=== PATIENT | female | born 1960 ===

== ENCOUNTER 2021-02-01 13:08 | Inpatient (IN) | payer MEDICAID, SELFPAY ==
[2021-02-01] VITALS (73 sets, daily range): BP systolic 64–112; BP diastolic 43–66; PULSE 109–142; RESP 5–35; TEMP 36.2–39.3; O2SAT 36–96; BMI 57.4
--- NOTE | 2021-02-01 14:23 | PC.NURSE ---
Addendum entered by Dale Kapoor R.N. 02/01/21 15:26: 1458- Notified Dr. Patrick of BG 61. Pt has BG in the 20s during transport here. Orders received for half amp of d50. Addendum entered by Dale Kapoor R.N. 02/01/21 14:42: 1440- Notified Dr. Patrick that pt is in bed, ready to be seen. 1435- Notified Dr. Patrick pt arrive on levophed at 20 mcg/min. Requested order to continue medication here. Dr. Patrick states she would like to see the pt first. requested to notify once pt is transferred from stretcher to bed and she will round. No new orders received. Original Note: Pt arrived to room 231 via stretcher with airlift at 1423.
[2021-02-01] MEDS: MIDAZOLAM 50 MG in DEXTROSE 5% IN WATER 240 ML 14.243 ML IV (14:35)
[2021-02-01] MEDS: fentaNYL 1,000 MCG in DEXTROSE 5% IN WATER 230 ML 24.925 ML IV (14:36)
[2021-02-01] MEDS: DEXTROSE 50 % IN WATER 25 GM/50 ML SYRINGE IV ×3 (15:01→21:08)
--- NOTE | 2021-02-01 15:30 | DI.RAD.S_ITS ---
PROCEDURE: XR CHEST 1V INDICATIONS: acute respiratory failure TECHNIQUE: One view of the chest was acquired. COMPARISON: None. FINDINGS: Surgical changes and devices: ETT tip is approximately 3.4 cm above the cynthia. NG tube tip is seen in the region of mid to distal esophageal lumen, should be advanced by 15 cm.. Lungs and pleura: Hazy airspace opacities are noted in bilateral hilar region suggestive of pulmonary vascular congestion. Ill-defined airspace opacities also seen in bilateral mid to lower lung lux more prominent on the right side. Right greater than left bilateral pleural effusion is also seen. No gross pneumothorax. Mediastinum: Mediastinal contours appear normal. Heart size is enlarged. Bones and chest wall: No suspicious bony lesions. Overlying soft tissues appear unremarkable. IMPRESSION: Tube and line positions as above. NG tube tip is in the region of distal esophageal lumen should be advanced by 15 cm. Persistent pulmonary vascular congestion and right worse than left bilateral pulmonary infiltrates. Right greater than left bilateral pleural effusion. No gross pneumothorax. Dictated by: Sammy Pires M.D. on 02/01/2021 at 16:12 Approved by: Sammy Pires M.D. on 02/01/2021 at 16:13
--- NOTE | 2021-02-01 15:43 | DIET.CONS ---
RD Note: Covid+ patient transferred from [facility] on ventilator. Per nursing pt requiring pressor support. RD to calculate TF needs morning of 02/02 when labs and H&P submitted. Pt c BMI 57.4.
[2021-02-01 15:52] LABS: PO2 ABG 67 mmHg (80-100); pH ABG 7.08 (7.35-7.45)
[2021-02-01 15:53] LABS: Fractionated Inspired Oxygen 100; HCO3 ABG 21 mmol/L (22-26); Oxygen Saturation ABG 83 % (95-100); TCO2 ABG 23 mmol/L (21-31)
--- NOTE | 2021-02-01 15:54 | PM.HP.1 ---
History of Present Illness History of Present Illness Chief complaint: Covid + Narrative: The patient is a 60-year-old female with a history of fibromyalgia, lymphoma, hypothyroidism, hep C, asthma, transferred from for [facility] Emergency Department with acute respiratory failure secondary to COVID pneumonia. The patient apparently was well until 5 days ago. She was COVID positive and began quarantine and. She was feeling sick 2 days ago with fever and chills. She had been short of breath for the past 24 hours. Patient also complained of cough but nonproductive. She has been vaccinated. She has no history of COPD or asthma but was a former smoker. The patient was evaluated at [facility]. She was started on remdesivir and Decadron. She decompensated and was intubated. As there were no ICU beds there or anywhere the patient was transferred to [facility] for definitive treatment. Enter out by airlift the patient was hypoglycemic. She remained hypotensive on Levophed 20 mics. Patient was markedly hypoxic despite intubation with O2 sats of 81 84%. 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 Hepatitis C antibody positive in blood History of lymphoma Hypothyroidism Post hysterectomy menopause Spinal stenosis Family & Social History Social History: household members spouse Prior Living Arrangements House Tobacco & Substance use: No smoking, no drinking alcohol, no recreational drugs Meds Home Medications and Allergies Home Medications Medication Instructions Recorded Confirmed Type furosemide 20 mg tablet 20 mg PO DAILY 02/01/21 02/01/21 History tramadol 50 mg tablet 50 mg PO TID PRN 02/01/21 02/01/21 History Allergies Allergy/AdvReac Type Severity Reaction Status Date / Time acetaminophen [From Tylenol] Allergy Unknown Verified 02/01/21 13:49 celecoxib [From Celebrex] Allergy Unknown Verified 02/01/21 13:49 ibuprofen Allergy Unknown Verified 02/01/21 13:49 Review of Systems Review of Systems Narrative: Unobtainable ENT Comments: , Gastrointestinal Comments: r Endocrine Comments: Hypoglycemic Exam Narrative Exam Narrative: Ill-appearing female intubated and sedated HENAK Other: Normocephalic atraumatic, Resp Other: Decreased breath sounds bilaterally Cardio Other: Cardiac exam: Regular rate rhythm normal S1-S2 GI Other: Abdomen: Soft, no board-like rigidity, no palpable mass Skin Other: No obvious lesion Neuro Other: Patient is sedated unresponsive Extrem Other: No edema Objective Labs Labs: Laboratory Results - last 24 hr 02/01/21 15:22 ABG pH 7.08 L* ABG pCO2 70.0 H* ABG pO2 67 L ABG HCO3 21 L ABG Total CO2 23 ABG O2 Saturation 83 L* ABG Base Excess -9.0 L FiO2 100 Assessment & Plan Assessment & Plan narrative: 60-year-old female admitted to the hospital with acute respiratory failure secondary to COVID pneumonia. -patient presented to the [place] emergency department and quickly deteriorated requiring intubation -multiple attempts to transfer including [facility],, [facility], , [facility], [facility], [facility], none of whom had ICU COVID beds -patient received IV Decadron and remdesivir prior to transfer -currently she remains markedly acidotic, with a respiratory and metabolic acidosis -we are currently attempting low tidal volume ventilation, however the patient is on tidal volume of 440 ml, will decrease, her current respiratory rate is 30, will increase respiratory rate to 32. Patient's plateau pressures are currently 29, very concerning for possible barotrauma, will continue to titrate oxygen with a goal of saturation of 88% or higher -will continue to decrease tidal volume, increase PEEP as pressures will tolerate -continue IV Decadron no further remdesivir -repeat labs, place central line, continue IV hydration for now, -attempted to obtain Tociluzimab, unable to obtain this at this time -patient is thrombocytopenic, will place SCDs and avoid Lovenox at this time, continue to monitor labs daily, and resume once platelets over 50 -repeat chest x-ray, prior chest x-ray revealed patchy bilateral infiltrates 2. Septic shock -will taper Levophed, start Adama-Synephrine given her tachycardia -continue IV hydration -continue Decadron -blood cultures, urine culture, no antibiotics at this time -will obtain inflammatory markers to include CRP, ferritin, LDH, procalcitonin -will continue pressors with a goal of a map of greater than 60 3. Acute renal failure -patient has had no urine output -serum creatinine 2.5, sodium 137, potassium 3.7, initial chloride 97, with a CO2 of 16, BUN 35, creatinine 2.5, total bili 3.9 AST of 84, ALT of 62, alk-phos 61, BNP 3 227, total protein 8.7, protime 14.2 with an INR of 1.4, D-dimer 8.3, markedly elevated, initial white count 3.1, hemoglobin 15.4, hematocrit 46, platelet count 47 4. Hypothyroidism -will hold for now 5. Morbid obesity 1 hour spent with this critically ill patient, by report she is a full code, Patient is critically ill with multiorgan system failure, will continue maximum support will discuss with Time Spent With Patient Critical Care time: I spent a total of [] minutes of critical care time on this patient's care today; this time is exclusive of procedural time.
--- NOTE | 2021-02-01 16:01 | DI.RAD.S_ITS ---
PROCEDURE: XR CHEST FOR PICC 1V INDICATIONS: PICC PLACEMENT COMPARISON: [facility], CR, XR CHEST 1V, 02/01/2021, 15:30. FINDINGS: PICC was placed by the intravenous therapy team from the left side. Fluoroscopic spot film demonstrates the tip of PICC projecting to the area of lower SVC. Widespread areas of dense consolidation are grossly unchanged. Endotracheal tube with the tip projecting approximately 6 cm above the cynthia. Enteric tube is again noted within the distal esophagus, and should be advanced as previously recommended on the comparison study dated earlier same day. IMPRESSION: Enteric tube tip is seen in the region of the distal esophagus and should be advanced as previously recommended. Findings (including all critical results) and recommendations were personally telephoned and discussed with the patient's ICU nurse (Chel) on 02-01-21 16:42 Tip of PICC projects to the area of lower SVC. Dictated by: Dale Walker M.D. on 02/01/2021 at 16:38 Approved by: Dale Walker M.D. on 02/01/2021 at 16:43
[2021-02-01 17:00] LABS: Hematocrit 38.5 % (36-46); Hemoglobin 12.9 g/dL (12.0-16.0); Mean Corpuscular HGB Conc 33.4 % (30-36); Mean Corpuscular Hemoglobin 31.9 PG (26-34); Mean Corpuscular Volume 95.4 fL (80-100); Platelet Count 49 X10^3/uL (150-400); Red Blood Cell Count 4.04 X10^6/uL (4.0-5.2); Red Cell Distribution Width 16.5 % (11.6-14.8); White Blood Cell Count 3.5 X10^3/uL (4.5-11.0)
[2021-02-01] MEDS: PHENYLEPHRINE 20,000 MCG in DEXTROSE 5% IN WATER 250 ML 135 ML IV ×2 (17:00→18:52)
[2021-02-01 17:01] LABS: Add Manual Diff / Slide Review YES
[2021-02-01] MEDS: NOREPINEPHRINE 4 MG in DEXTROSE 5% IN WATER 250 ML 30.48 ML IV (17:06)
[2021-02-01 17:21] LABS: Albumin 2.6 g/dL (3.5-5.0); Albumin Globulin Ratio 0.6 (1.0-2.8); Alkaline Phosphatase 49 U/L (38-126); Aspartate Aminotransferase 86 IU/L (14-36); BUN Creatinine Ratio 12.7 (6-22); Bilirubin Total 3.3 mg/dL (0.2-1.3); Blood Urea Nitrogen 34 mg/dL (7-17); Calcium 8.4 mg/dL (8.4-10.2); Carbon Dioxide 21 mmol/L (22-32); Chloride 101 mmol/L (98-107); Estimated Glomerular Filt Rate 18.1 mL/min (>60); Globulin 4.1 g/dL (1.7-4.1); Glucose 51 mg/dL (80-110); HEMOLYSIS < 15 (0-50); Potassium 3.7 mmol/L (3.4-5.1); Sodium 131 mmol/L (137-145); Total Protein 6.7 g/dL (6.3-8.2)
[2021-02-01 17:23] LABS: Creatine Kinase 186 U/L (30-135); Lactate Dehydrogenase 1027 U/L (313-618)
[2021-02-01 17:27] LABS: Lactate (Lactic Acid) 7.1 mmol/L (0.7-2.1)
[2021-02-01 17:28] LABS: Alanine Aminotransferase 45 IU/L (<35)
[2021-02-01 17:33] LABS: Troponin I 0.028 ng/mL (0.01-0.034)
[2021-02-01 17:35] LABS: C-Reactive Protein Quant 18.4 mg/dL (<1.0)
[2021-02-01 17:37] LABS: Procalcitonin 17.6 ng/mL (<0.5)
[2021-02-01 17:56] LABS: Ferritin 375 ng/mL (11-264)
--- NOTE | 2021-02-01 17:59 | DI.US.S_ITS ---
PROCEDURE: US RENAL COMPLETE INDICATIONS: DECREASED URINE OUTPUT TECHNIQUE: Real-time scanning was performed of the kidneys and bladder, with image documentation. COMPARISON: None. FINDINGS: Kidneys: Kidneys are normal in size. Right kidney measures 10.4 cm long; left kidney measures 10.5 cm long. Right renal cortical thickness is 1.9 cm; left renal cortical thickness is 2.1 cm. Renal cortical echotexture is normal. No hydronephrosis or nephrolithiasis. No suspicious solid mass lesions. Bladder: Bladder is decompressed by a Johnson catheter. Miscellaneous: No free pelvic fluid. IMPRESSION: Normal sized kidneys with no evidence of hydronephrosis. Dictated by: Augustin Mccain M.D. on 02/01/2021 at 20:29 Approved by: Augustin Mccain M.D. on 02/01/2021 at 20:30
[2021-02-01 18:09] LABS: Fractionated Inspired Oxygen 100; HCO3 ABG 21 mmol/L (22-26); Oxygen Saturation ABG 74 % (95-100); PCO2 ABG 70.5 mmHg (35-45); PO2 ABG 55 mmHg (80-100); TCO2 ABG 23 mmol/L (21-31); pH ABG 7.09 (7.35-7.45)
[2021-02-01 18:44] LABS: Reflexed Lactate in 2 Hours Y
[2021-02-01 18:47] LABS: Neutrophils Absolute Manual 630 /uL (3000-5900); Total Cells Counted 100
[2021-02-01 18:48] LABS: Platelet Estimate Decreased on smear; Platelet Morphology Comment NOTE; RBC Morphology Normal Morphology
[2021-02-01 18:51] LABS: Toxic Granulation Present; WBC Morphology Comment 2+ Hypogranular
[2021-02-01] MEDS: VASOPRESSIN 40 UNIT in SODIUM CHLORIDE 0.9% 100 ML IV (18:54)
[2021-02-01 18:56] LABS: Lactate (Lactic Acid) 7.4 mmol/L (0.7-2.1)
[2021-02-01] MEDS: CEFEPIME 2 GM in SODIUM CHLORIDE 0.9% 100 ML 200 ML IV (19:16)
[2021-02-01] MEDS: DEXTROSE 5%-LACTATED RINGERS 1,000 ML 125 ML IV (19:21)
--- NOTE | 2021-02-01 19:34 | PC.NURSE ---
Patient COVID positive and intubated, on max settings PEEP 15, FiO2 100%, TV 400, RR 32. SpO2 remaining in 70's%. Patient side-lying, unable to prone safely with current staffing. HR tachy, 120-130's. BP hypotensive, multiple drips being titrated to maintain BP >65. See MAR. Patient is unresponsive, no reaction to painful nailbed stimulus. Skin intact. Johnson in place, no urine output, placement checked- provider aware. Patient had BG in 20's during transport, during this nurse's shift patient's BG ranged from 50's-80's, D50 25ml given 1x. Now sustaining BG WNL on LRD5 @ 100ml. updated on patient's critical condition.
[2021-02-01] MEDS: NOREPINEPHRINE 4 MG in DEXTROSE 5% IN WATER 250 ML 91.44 ML IV (20:15)
[2021-02-01] MEDS: SODIUM CHLORIDE 0.9% IV ×2 (20:25)
[2021-02-01] MEDS: ROCURONIUM IV ×2 (20:25)
[2021-02-01 20:26] LABS: Reflexed Lactate in 2 Hours Y
[2021-02-01 21:22] LABS: COVID19 -Nasal RAPID POSITIVE (Negative)
--- NOTE | 2021-02-01 22:17 | PM.EICU.INT ---
Teleintensivist Intervention Date/Time Was camera activated?: Yes Date Patient Seen: 02/01/21 Time Patient Seen: 10:18 Issue(s) Addressed Issue(s): Resp. Distress/Ventilator management ([place] ehypoxic/hypercapneic respiratory failure due to COVID-19 pneumonia/anuria/FRANCICSO) and Shock/hypotension Intervention(s) :: Patient also seen earlier this shift during multidisciplinary rounds. Patient on norepinephrine and vasopressin infusions; being sedated with fentanyl and midazolam. Advised bedside staff to initiate neuromuscular blockade and continue efforts at transfer. Other interventions were to increase PEEP, infusion Regeneron antibody if available and repeat ABG after paralytic initiated. Repeat blood gas @21:43 was 6.95/85/38. Spoke to RN who believes that this blood gas was venous. Patient now on phenylephrine with non-invasive SBP in 60s. Epinephrine infusion ordered. Given severity of acidemia, liberalized tidal volume to 450 mL. Patient now accepted @ [facility] helicopter due to arrive in 3 minutes; will give 100 mEq NaHCO3 for transport although this will not definitively improve her acidemia given the hypercapnic respiratory failure. I spent a total of 35 minutes of noncontinuous critical care time on this patient's care; this time excludes all procedural time.
--- NOTE | 2021-02-01 22:20 | P.DS_ITS ---
History of Present Illness History of Present Illness Date Patient Seen: 02/01/21 Time Patient Seen: 22:20 Chief complaint: Shortness of breath Narrative: From H and P by Dr. Mary Patrick: The patient is a 60-year-old female with a history of fibromyalgia, lymphoma, hypothyroidism, hep C, asthma, transferred from [facility] Emergency Department with acute respiratory failure secondary to COVID pneumonia.? The patient apparently was well until 5 days ago.? She was COVID positive and began quarantine and.? She was feeling sick 2 days ago with fever and chills.? She had been short of breath for the past 24 hours.? Patient also complained of cough but nonproductive.? She has been vaccinated.? She has no history of COPD or asthma but was a former smoker.? The patient was evaluated at [facility].? She was started on remdesivir and Decadron.? She decompensated and was intubated.? As there were no ICU beds there or anywhere the patient was transferred to [facility] for definitive treatment.? Enter out by airlift the patient was hypoglycemic.? She remained hypotensive on Levophed 20 mics.? Patient was markedly hypoxic despite intubation with O2 sats of 81 84%. Patient is admitted to the hospital for treatment of COVID pneumonia Discharge Providers Provider Date of admission: 02/01/21 13:08 Discharge Date: 02/01/21 Consults: 02/01/21 15:24 Consult to Dietitian, Adult Routine Comment: Reason For Exam: Patient on Ventilator and NPO 02/01/21 15:57 Consult to Dietitian, Adult Routine Comment: Reason For Exam: Patient on Ventilator and NPO Discharge provider: SARA Bolanos Summary Hospital Course Discharge Diagnosis: COVID pneumonia, acute renal failure, acute hypoxic respiratory failure likely ARDS Hospital Course: Trice Beckett is a 60-year-old female who was seen at the [facility] in [place], [place] this morning with known COVID-19, breakthrough vaccination infection. She was airlifted as a direct transfer to [facility] ICU intubated. Patient was managed in coordination with eICU and efforts to have her oxygenation improved have not been successful. She was determined to require dialysis due to her becoming anuric. She had it ABG pH of 7.09 which is now decreased to 6.9, ABG pCO2 was 75, ABG PO2 was 55, bicarb 21 currently now 16, and ABG O2 saturation is 74% and we have not been successful in getting her much above that. She has a base excess of 9.0. At the direction of eICU, she was trialed on 170 mics of Rocuronium which caused total block which has now been stopped. She is on Adama-Synephrine, vasopressin, epinephrine drip, and norepinephrine. She is on fentanyl and Versed for sedation. Patient has a history of lymphoma many years ago per her as well as alcoholic hepatitis C with chronic thrombocytopenia likely currently and cirrhosis. Patient's D-dimer was elevated however was not able to undergo CT imaging due to her rising creatinine. Resuscitative efforts have been made in the ICU and she will be life flighted to [facility] him Dr. Phillips, wheel mill operator accepting. She is tenuous however we are transporting her in a similar condition that she was transported to hear from her local facility earlier today. Status at Discharge Functional status at discharge: bed bound Exam Vital Signs (past 8 hours): - 02/01/21 14:27 02/01/21 14:29 02/01/21 14:30 Temperature Pulse Rate 142 H 139 H 139 H Respiratory Rate Blood Pressure 112/62 112/58 L Pulse Oximetry 84 L 95 86 L 02/01/21 14:38 02/01/21 14:45 02/01/21 14:51 Temperature Pulse Rate 140 H 138 H 138 H Respiratory Rate 24 24 24 Blood Pressure 106/58 L 108/56 L 108/58 L Pulse Oximetry 84 L 83 L 84 L 02/01/21 15:00 02/01/21 15:06 02/01/21 15:15 Temperature Pulse Rate 138 H 138 H 135 H Respiratory Rate 24 23 24 Blood Pressure 101/58 L 103/58 L Pulse Oximetry 85 L 87 L 86 L 02/01/21 15:30 02/01/21 15:45 02/01/21 16:00 Temperature Pulse Rate 134 H 132 H 129 H Respiratory Rate 30 H 30 H 30 H Blood Pressure 96/51 L 95/53 L 92/55 L Pulse Oximetry 86 L 81 L 80 L 02/01/21 16:15 02/01/21 16:18 02/01/21 16:19 Temperature Pulse Rate 127 H 126 H 126 H Respiratory Rate 30 H 30 H 30 H Blood Pressure 89/46 L 79/44 L 77/44 L Pulse Oximetry 78 L 76 L 74 L 02/01/21 16:21 02/01/21 16:25 02/01/21 16:30 Temperature Pulse Rate 126 H 127 H 127 H Respiratory Rate 30 H 32 H 32 H Blood Pressure 80/50 L 83/50 L 87/52 L Pulse Oximetry 72 L 74 L 78 L 02/01/21 16:37 02/01/21 16:40 02/01/21 16:45 Temperature Pulse Rate 127 H 127 H 127 H Respiratory Rate 32 H 32 H 32 H Blood Pressure 84/48 L 87/50 L 86/47 L Pulse Oximetry 77 L 76 L 74 L 02/01/21 16:50 02/01/21 16:55 02/01/21 17:00 Temperature Pulse Rate 128 H 127 H 125 H Respiratory Rate 32 H 32 H 32 H Blood Pressure 85/48 L 86/48 L Pulse Oximetry 74 L 74 L 78 L 02/01/21 17:01 02/01/21 17:06 02/01/21 17:10 Temperature Pulse Rate 125 H 128 H 129 H Respiratory Rate 33 H 26 H 12 Blood Pressure 103/58 L 103/60 102/56 L Pulse Oximetry 80 L 80 L 78 L 02/01/21 17:15 02/01/21 17:20 02/01/21 17:25 Temperature Pulse Rate 129 H 128 H 128 H Respiratory Rate 24 32 H 32 H Blood Pressure 104/59 L 102/63 106/57 L Pulse Oximetry 81 L 80 L 80 L 02/01/21 17:30 02/01/21 17:35 02/01/21 17:40 Temperature Pulse Rate 128 H 128 H 126 H Respiratory Rate 32 H 32 H 32 H Blood Pressure 105/60 107/66 101/62 Pulse Oximetry 81 L 81 L 81 L 02/01/21 17:46 02/01/21 17:56 02/01/21 17:58 Temperature Pulse Rate 127 H 129 H 129 H Respiratory Rate 30 H 32 H 32 H Blood Pressure 102/59 L 80/50 L 88/49 L Pulse Oximetry 80 L 81 L 96 02/01/21 18:00 02/01/21 18:07 02/01/21 18:10 Temperature Pulse Rate 128 H 126 H 126 H Respiratory Rate 32 H 32 H 32 H Blood Pressure 82/52 L 79/50 L Pulse Oximetry 79 L 77 L 76 L 02/01/21 18:15 02/01/21 18:20 02/01/21 18:26 Temperature Pulse Rate 122 H 124 H 125 H Respiratory Rate 32 H 32 H 32 H Blood Pressure 82/52 L 80/50 L 80/43 L Pulse Oximetry 75 L 74 L 73 L 02/01/21 18:30 02/01/21 18:34 02/01/21 18:35 Temperature Pulse Rate 125 H 124 H 124 H Respiratory Rate 32 H 32 H 32 H Blood Pressure 84/52 L 76/43 L Pulse Oximetry 72 L 73 L 73 L 02/01/21 18:40 02/01/21 18:46 02/01/21 18:50 Temperature Pulse Rate 123 H 123 H 123 H Respiratory Rate 32 H 32 H 32 H Blood Pressure 79/48 L 81/50 L 91/55 L Pulse Oximetry 73 L 74 L 74 L 02/01/21 18:55 02/01/21 19:00 02/01/21 19:05 Temperature Pulse Rate 123 H 123 H 123 H Respiratory Rate 32 H 32 H 32 H Blood Pressure 83/46 L 74/52 L 79/54 L Pulse Oximetry 74 L 75 L 75 L 02/01/21 19:10 02/01/21 19:20 02/01/21 19:30 Temperature Pulse Rate 124 H 123 H 124 H Respiratory Rate 32 H 32 H 29 H Blood Pressure 83/56 L 89/53 L 94/55 L Pulse Oximetry 76 L 75 L 74 L 02/01/21 19:40 02/01/21 19:50 02/01/21 20:00 Temperature Pulse Rate 125 H 124 H 123 H Respiratory Rate 32 H 23 32 H Blood Pressure 86/50 L 81/50 L 82/48 L Pulse Oximetry 72 L 73 L 63 L 02/01/21 20:10 02/01/21 20:20 02/01/21 20:21 Temperature 97.2 F L Pulse Rate 122 H 119 H 123 H Respiratory Rate 29 H 26 H 31 H Blood Pressure 75/44 L 79/46 L 82/48 L Pulse Oximetry 58 L 58 L 63 L 02/01/21 20:30 02/01/21 20:33 02/01/21 21:00 Temperature Pulse Rate 117 H 118 H 121 H Respiratory Rate 28 H 8 L 10 L Blood Pressure 89/53 L Pulse Oximetry 64 L 69 L 36 L 02/01/21 21:30 Temperature Pulse Rate 117 H Respiratory Rate 6 L Blood Pressure Pulse Oximetry 73 L Fraction of Inspired Oxygen 100 Oxygen Delivery Method Mechanical Ventilation Narrative Exam Narrative: Full physical exam could not be performed due to COVID-19 isolation requirements. Attempt was made to examine the patient in person. Gen: Alert, oriented, morbidly obese 60 y.o. female, of tended and ventilated HEENT: normocephalic, atraumatic, conjunctiva clear, sclera non-icteric, oral mucosa pink and moist Neck: supple, full ROM, no JVD Abd: Obese Skin: Mildly jaundice pallor Neuro: obtunded and ventilated Psyche: Unable to assess Objective Labs Result Diagrams: 02/01/21 16:30 02/01/21 16:30 Labs: Laboratory Results - last 24 hr 02/01/21 02/01/21 02/01/21 14:50 15:22 16:30 WBC 3.5 L RBC 4.04 Hgb 12.9 Hct 38.5 MCV 95.4 MCH 31.9 MCHC 33.4 RDW 16.5 H Plt Count 49 L Neut % (Auto) Not Reportable Lymph % (Auto) Not Reportable [place] % (Auto) Not Reportable Eos % (Auto) Not Reportable Baso % (Auto) Not Reportable Neut # (Auto) Lymph # (Auto) Not Reportable [place] # (Auto) Not Reportable Eos # (Auto) Baso # (Auto) Not Reportable Total Counted 100 Seg Neutrophils % 5.0 L Band Neutrophils % 13.0 H Lymphocytes % (Manual) 22.0 L Atypical Lymphs % 1.0 H Monocytes % (Manual) 6.0 Eosinophils % (Manual) 3.0 Metamyelocytes % 10.0 H Myelocytes % 30.0 H Promyelocytes % 6.0 H Blast Cells % 4.0 H Neutrophils # (Manual) 630 L Toxic Granulation Present H WBC Morphology Comment 2+ hypogranular Platelet Estimate Decreased on smear Plt Morphology Comment Note RBC Morphology Normal morphology ABG pH 7.08 L* ABG pCO2 70.0 H* ABG pO2 67 L ABG HCO3 21 L ABG Total CO2 23 ABG O2 Saturation 83 L* ABG Base Excess -9.0 L FiO2 100 Sodium Potassium Chloride Carbon Dioxide BUN Creatinine Estimated GFR BUN/Creatinine Ratio Glucose Lactate Calcium Ferritin Total Bilirubin AST ALT Alkaline Phosphatase Lactate Dehydrogenase Total Creatine Kinase Troponin I C-Reactive Protein Total Protein Albumin Globulin Albumin/Globulin Ratio Procalcitonin Nasal Screen MRSA (PCR) Negative for mrsa SARS-CoV-2 (PCR) 02/01/21 02/01/21 02/01/21 16:30 16:30 16:30 WBC RBC Hgb Hct MCV MCH MCHC RDW Plt Count Neut % (Auto) Lymph % (Auto) [place] % (Auto) Eos % (Auto) Baso % (Auto) Neut # (Auto) Lymph # (Auto) [place] # (Auto) Eos # (Auto) Baso # (Auto) Total Counted Seg Neutrophils % Band Neutrophils % Lymphocytes % (Manual) Atypical Lymphs % Monocytes % (Manual) Eosinophils % (Manual) Metamyelocytes % Myelocytes % Promyelocytes % Blast Cells % Neutrophils # (Manual) Toxic Granulation WBC Morphology Comment Platelet Estimate Plt Morphology Comment RBC Morphology ABG pH ABG pCO2 ABG pO2 ABG HCO3 ABG Total CO2 ABG O2 Saturation ABG Base Excess FiO2 Sodium Cancelled Potassium Cancelled Chloride Cancelled Carbon Dioxide Cancelled BUN Cancelled Creatinine Cancelled Estimated GFR Cancelled BUN/Creatinine Ratio Cancelled Glucose Cancelled Lactate 7.1 H* Calcium Cancelled Ferritin 375 H Total Bilirubin Cancelled AST Cancelled ALT Cancelled Alkaline Phosphatase Cancelled Lactate Dehydrogenase 1027 H Total Creatine Kinase 186 H Troponin I 0.028 C-Reactive Protein 18.4 H Total Protein Cancelled Albumin Cancelled Globulin Cancelled Albumin/Globulin Ratio Cancelled Procalcitonin Nasal Screen MRSA (PCR) SARS-CoV-2 (PCR) 02/01/21 02/01/21 02/01/21 16:30 16:30 16:30 WBC Cancelled RBC Cancelled Hgb Cancelled Hct Cancelled MCV Cancelled MCH Cancelled MCHC Cancelled RDW Cancelled Plt Count Cancelled Neut % (Auto) Cancelled Lymph % (Auto) Cancelled [place] % (Auto) Cancelled Eos % (Auto) Cancelled Baso % (Auto) Cancelled Neut # (Auto) Cancelled Lymph # (Auto) Cancelled [place] # (Auto) Cancelled Eos # (Auto) Cancelled Baso # (Auto) Cancelled Total Counted Seg Neutrophils % Band Neutrophils % Lymphocytes % (Manual) Atypical Lymphs % Monocytes % (Manual) Eosinophils % (Manual) Metamyelocytes % Myelocytes % Promyelocytes % Blast Cells % Neutrophils # (Manual) Toxic Granulation WBC Morphology Comment Platelet Estimate Plt Morphology Comment RBC Morphology ABG pH ABG pCO2 ABG pO2 ABG HCO3 ABG Total CO2 ABG O2 Saturation ABG Base Excess FiO2 Sodium 131 L Potassium 3.7 Chloride 101 Carbon Dioxide 21 L BUN 34 H Creatinine 2.67 H Estimated GFR 18.1 L BUN/Creatinine Ratio 12.7 Glucose 51 L Lactate Calcium 8.4 Ferritin Total Bilirubin 3.3 H AST 86 H ALT 45 H Alkaline Phosphatase 49 Lactate Dehydrogenase Total Creatine Kinase Troponin I C-Reactive Protein Total Protein 6.7 Albumin 2.6 L Globulin 4.1 Albumin/Globulin Ratio 0.6 L Procalcitonin 17.6 H Nasal Screen MRSA (PCR) SARS-CoV-2 (PCR) 02/01/21 02/01/21 02/01/21 17:55 21:07 Unknown WBC RBC Hgb Hct MCV MCH MCHC RDW Plt Count Neut % (Auto) Lymph % (Auto) [place] % (Auto) Eos % (Auto) Baso % (Auto) Neut # (Auto) Lymph # (Auto) [place] # (Auto) Eos # (Auto) Baso # (Auto) Total Counted Seg Neutrophils % Band Neutrophils % Lymphocytes % (Manual) Atypical Lymphs % Monocytes % (Manual) Eosinophils % (Manual) Metamyelocytes % Myelocytes % Promyelocytes % Blast Cells % Neutrophils # (Manual) Toxic Granulation WBC Morphology Comment Platelet Estimate Plt Morphology Comment RBC Morphology ABG pH 7.09 L* ABG pCO2 70.5 H* ABG pO2 55 L ABG HCO3 21 L ABG Total CO2 23 ABG O2 Saturation 74 L* ABG Base Excess -9.0 L FiO2 100 Sodium Potassium Chloride Carbon Dioxide BUN Creatinine Estimated GFR BUN/Creatinine Ratio Glucose Lactate 7.4 H* Calcium Ferritin Total Bilirubin AST ALT Alkaline Phosphatase Lactate Dehydrogenase Total Creatine Kinase Troponin I C-Reactive Protein Total Protein Albumin Globulin Albumin/Globulin Ratio Procalcitonin Nasal Screen MRSA (PCR) SARS-CoV-2 (PCR) Positive H PFSH Medical History Asthma Fibromyalgia 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 Septic shock secondary to COVID-19 pneumonia 2. ARDS secondary to COVID-19 pneumonia 3. Acute renal failure with anurea 4. Elevated D-dimer, pulmonary embolism is unknown 5. Morbid obesity 6. Current tobacco user Plan of Treatment: See hospital course above. Patient will be transferred to [facility] in [place] for higher level of care. Discharge Plan Discharge Plan Disposition: [facility] Discharge Health Status Precautions: Airborne Diet/Activity/Treatments Diet: Nothing by Mouth Quality VTE Deep Vein Thrombosis/Pulmonary Embolism Present on Admission: No MIPS - Admit I confirm the patient?s Advance Care Plan is present, Code status is documented, Surrogate decision maker is in patient?s record [If Yes, STOP here]: Yes MIPS - DC The patient has current or prior documentation of left ventricular ejection fra ction (LVEF) less than 40%, or moderate or severely depressed left ventricular systolic function.: No
[2021-02-01] MEDS: EPINEPHrine 1 MG in DEXTROSE 5% IN WATER 250 ML 43.072 ML IV (22:27)
[2021-02-01] MEDS: SODIUM BICARB 8.4% VIAL 150 MEQ in DEXTROSE 5% WATER 1,000 ML 100 MEQ IV (22:32)
--- NOTE | 2021-02-01 23:13 | PM.EVENT ---
Event Note Date Patient Seen: 02/01/21 Time Patient Seen: 22:00 Event Note: Patient was being prepped for airlift transport to [facility] and per the patient's nurse she began to become bradycardic and a code was called. Dr. Black was observing and came up to see the patient. She was ordered for bicarb and a did receive 2 and half amps. There was also concern of her becoming for hyperkalemic make so she was given insulin 10 units along with calcium carbonate. CPR was started on the patient and she did develop a weakly perfusing rhythm. Helicopter paramedics and RN were there and informed us that she did not meet criteria for transport due to her low end-tidal CO2. She was in the 30s in the require a level of 60 and felt that the patient is likely to code in the helicopter. Patient continues to be obtained and an on the ventilator. I have discussed the case twice with her who continues to wish to have her be a full code and to let him know the status. I did inform him that she would not be able to be transferred and that her ultimate goal at this point should be comfort. But he stated that he still wanted resuscitative efforts. I will attest to the futility of further resuscitative efforts in the case that she codes and in consultation with Dr. Black and Dr. Mckeon have made her a DNR. I did inform the Usama, that she will likely pass overnight. I am not clear that he fully understands the situation but he has had to face a number of very stressful status reports over the course of the day and may be a greater acceptance by tomorrow. Critical care time: 240 minutes total over today February 01, 2021. X Consultation with remote Critical Care physician. X Ordering labs and additional testing. X Close monitoring of respiratory and ventilation status. X Ordering of cardiac pressors and paralytics. X Family consultation.
--- NOTE | 2021-02-01 23:25 | P.DN_ITS ---
Discharge Summary History of Illness Narrative: From H and P by Dr. Mary Patrick: The patient is a 60-year-old female with a history of fibromyalgia, lymphoma, hypothyroidism, hep C, asthma, transferred from for [facility] with acute respiratory failure secondary to COVID pneumonia.? The patient apparently was well until 5 days ago.? She was COVID positive and began quarantine and.? She was feeling sick 2 days ago with fever and chills.? She had been short of breath for the past 24 hours.? Patient also complained of cough but nonproductive.? She has been vaccinated.? She has no history of COPD or asthma but was a former smoker.? The patient was evaluated at [facility].? She was started on remdesivir and Decadron.? She decompensated and was intubated.? As there were no ICU beds there or anywhere the patient was transferred to [facility] for definitive treatment.? Enter out by airlift the patient was hypoglycemic.? She remained hypotensive on Levophed 20 mics.? Patient was markedly hypoxic despite intubation with O2 sats of 81 84%. Patient is admitted to the hospital for treatment of COVID pneumonia. Hospital Course Date of Admission: 02/01/21 13:08 Date of : 02/01/21 Consults: 02/01/21 15:24 Consult to Dietitian, Adult Routine Comment: Reason For Exam: Patient on Ventilator and NPO 02/01/21 15:57 Consult to Dietitian, Adult Routine Comment: Reason For Exam: Patient on Ventilator and NPO Discharge provider: SARA Bolanos Discharge Diagnosis: ARDS COVID-19 acute respiratory failure Acute renal failure Metabolic derangement Hospital Course: Patient was being prepped for airlift transport to [facility] and per the patient's nurse she began to become bradycardic and a code was called.? Dr. Black was observing and came up to see the patient.? She was ordered for bicarb and a did receive 2 and half amps.? There was also concern of her becoming for hyperkalemic make so she was given insulin 10 units along with calcium carbonate.? CPR was started on the patient and she did develop a weakly perfusing rhythm.? Helicopter paramedics and RN were there and informed us that she did not meet criteria for transport due to her low end-tidal CO2.? She was in the 30s in the require a level of 60 and felt that the patient is likely to code in the helicopter.? Patient continues to be obtained and an on the ventilator.? I have discussed the case twice with her who continues to wish to have her be a full code and to let him know the status.? I did inform him that she would not be able to be transferred and that her ultimate goal at this point should be comfort.? But he stated that he still wanted resuscitative efforts. I will attest to the futility of further resuscitative efforts in the case that she codes and in consultation with Dr. Black and Dr. Mckeon have made her a DNR.? I did inform the Usama, that she will likely pass overnight.? I am not clear that he fully understands the situation but he has had to face a number of very stressful status reports over the course of the day and may be a greater acceptance by tomorrow. Critical care time:? 240 minutes total over today February 01, 2021. X Consultation with remote Critical Care physician. X Ordering labs and additional testing. X Close monitoring of respiratory and ventilation status. X Ordering of cardiac pressors and paralytics. X Family consultation. Informed of patient's passing at 2325, 02/01/2021. Objective Labs Result Diagrams: 02/01/21 16:30 02/01/21 16:30 Labs: Laboratory Results - last 24 hr 02/01/21 02/01/21 02/01/21 14:50 15:22 16:30 WBC 3.5 L RBC 4.04 Hgb 12.9 Hct 38.5 MCV 95.4 MCH 31.9 MCHC 33.4 RDW 16.5 H Plt Count 49 L Neut % (Auto) Not Reportable Lymph % (Auto) Not Reportable [place] % (Auto) Not Reportable Eos % (Auto) Not Reportable Baso % (Auto) Not Reportable Neut # (Auto) Lymph # (Auto) Not Reportable [place] # (Auto) Not Reportable Eos # (Auto) Baso # (Auto) Not Reportable Total Counted 100 Seg Neutrophils % 5.0 L Band Neutrophils % 13.0 H Lymphocytes % (Manual) 22.0 L Atypical Lymphs % 1.0 H Monocytes % (Manual) 6.0 Eosinophils % (Manual) 3.0 Metamyelocytes % 10.0 H Myelocytes % 30.0 H Promyelocytes % 6.0 H Blast Cells % 4.0 H Neutrophils # (Manual) 630 L Toxic Granulation Present H WBC Morphology Comment 2+ hypogranular Platelet Estimate Decreased on smear Plt Morphology Comment Note RBC Morphology Normal morphology ABG pH 7.08 L* ABG pCO2 70.0 H* ABG pO2 67 L ABG HCO3 21 L ABG Total CO2 23 ABG O2 Saturation 83 L* ABG Base Excess -9.0 L FiO2 100 Sodium Potassium Chloride Carbon Dioxide BUN Creatinine Estimated GFR BUN/Creatinine Ratio Glucose Lactate Calcium Ferritin Total Bilirubin AST ALT Alkaline Phosphatase Lactate Dehydrogenase Total Creatine Kinase Troponin I C-Reactive Protein Total Protein Albumin Globulin Albumin/Globulin Ratio Procalcitonin Nasal Screen MRSA (PCR) Negative for mrsa SARS-CoV-2 (PCR) 02/01/21 02/01/21 02/01/21 16:30 16:30 16:30 WBC RBC Hgb Hct MCV MCH MCHC RDW Plt Count Neut % (Auto) Lymph % (Auto) [place] % (Auto) Eos % (Auto) Baso % (Auto) Neut # (Auto) Lymph # (Auto) [place] # (Auto) Eos # (Auto) Baso # (Auto) Total Counted Seg Neutrophils % Band Neutrophils % Lymphocytes % (Manual) Atypical Lymphs % Monocytes % (Manual) Eosinophils % (Manual) Metamyelocytes % Myelocytes % Promyelocytes % Blast Cells % Neutrophils # (Manual) Toxic Granulation WBC Morphology Comment Platelet Estimate Plt Morphology Comment RBC Morphology ABG pH ABG pCO2 ABG pO2 ABG HCO3 ABG Total CO2 ABG O2 Saturation ABG Base Excess FiO2 Sodium Cancelled Potassium Cancelled Chloride Cancelled Carbon Dioxide Cancelled BUN Cancelled Creatinine Cancelled Estimated GFR Cancelled BUN/Creatinine Ratio Cancelled Glucose Cancelled Lactate 7.1 H* Calcium Cancelled Ferritin 375 H Total Bilirubin Cancelled AST Cancelled ALT Cancelled Alkaline Phosphatase Cancelled Lactate Dehydrogenase 1027 H Total Creatine Kinase 186 H Troponin I 0.028 C-Reactive Protein 18.4 H Total Protein Cancelled Albumin Cancelled Globulin Cancelled Albumin/Globulin Ratio Cancelled Procalcitonin Nasal Screen MRSA (PCR) SARS-CoV-2 (PCR) 02/01/21 02/01/21 02/01/21 16:30 16:30 16:30 WBC Cancelled RBC Cancelled Hgb Cancelled Hct Cancelled MCV Cancelled MCH Cancelled MCHC Cancelled RDW Cancelled Plt Count Cancelled Neut % (Auto) Cancelled Lymph % (Auto) Cancelled [place] % (Auto) Cancelled Eos % (Auto) Cancelled Baso % (Auto) Cancelled Neut # (Auto) Cancelled Lymph # (Auto) Cancelled [place] # (Auto) Cancelled Eos # (Auto) Cancelled Baso # (Auto) Cancelled Total Counted Seg Neutrophils % Band Neutrophils % Lymphocytes % (Manual) Atypical Lymphs % Monocytes % (Manual) Eosinophils % (Manual) Metamyelocytes % Myelocytes % Promyelocytes % Blast Cells % Neutrophils # (Manual) Toxic Granulation WBC Morphology Comment Platelet Estimate Plt Morphology Comment RBC Morphology ABG pH ABG pCO2 ABG pO2 ABG HCO3 ABG Total CO2 ABG O2 Saturation ABG Base Excess FiO2 Sodium 131 L Potassium 3.7 Chloride 101 Carbon Dioxide 21 L BUN 34 H Creatinine 2.67 H Estimated GFR 18.1 L BUN/Creatinine Ratio 12.7 Glucose 51 L Lactate Calcium 8.4 Ferritin Total Bilirubin 3.3 H AST 86 H ALT 45 H Alkaline Phosphatase 49 Lactate Dehydrogenase Total Creatine Kinase Troponin I C-Reactive Protein Total Protein 6.7 Albumin 2.6 L Globulin 4.1 Albumin/Globulin Ratio 0.6 L Procalcitonin 17.6 H Nasal Screen MRSA (PCR) SARS-CoV-2 (PCR) 02/01/21 02/01/21 02/01/21 17:55 21:07 Unknown WBC RBC Hgb Hct MCV MCH MCHC RDW Plt Count Neut % (Auto) Lymph % (Auto) [place] % (Auto) Eos % (Auto) Baso % (Auto) Neut # (Auto) Lymph # (Auto) [place] # (Auto) Eos # (Auto) Baso # (Auto) Total Counted Seg Neutrophils % Band Neutrophils % Lymphocytes % (Manual) Atypical Lymphs % Monocytes % (Manual) Eosinophils % (Manual) Metamyelocytes % Myelocytes % Promyelocytes % Blast Cells % Neutrophils # (Manual) Toxic Granulation WBC Morphology Comment Platelet Estimate Plt Morphology Comment RBC Morphology ABG pH 7.09 L* ABG pCO2 70.5 H* ABG pO2 55 L ABG HCO3 21 L ABG Total CO2 23 ABG O2 Saturation 74 L* ABG Base Excess -9.0 L FiO2 100 Sodium Potassium Chloride Carbon Dioxide BUN Creatinine Estimated GFR BUN/Creatinine Ratio Glucose Lactate 7.4 H* Calcium Ferritin Total Bilirubin AST ALT Alkaline Phosphatase Lactate Dehydrogenase Total Creatine Kinase Troponin I C-Reactive Protein Total Protein Albumin Globulin Albumin/Globulin Ratio Procalcitonin Nasal Screen MRSA (PCR) SARS-CoV-2 (PCR) Positive H
--- NOTE | 2021-02-01 23:50 | PC.NURSE ---
2014 Evening (scheduled) rounds with Dr. Segundo start paralytic Rocuronium obtain ABG 1 hour post paralytic start confirm and continue Dexamethasone 6mg IV qd has Regeneron been given at some point? increase f to 35 after paralytic start increase PEEP to 18 now 2019 PEEP to 18 2024 Rocuronium gtts started TO4=4 2100 TO4=0; f=35, Rocuronium rate halved 2142 Rocuronium paused 2200 Norepinephine to 30 (from 24), Neosynephrine to 200 (from 180) 2215 Dr. Segundo via TeleMD: increase TV to 450; NaBicarb 100 now, start Epinephrine gtts 2227 Epinephrine gtts started at 0.02 mkm; 2232 Order modified: give NaBicarb 150mEq IVP 2245 Epinephrine gtts to 0.04 mkm 2248 CPR started 2249 Epinephrine X 1 amp IVP 2250 Code Blue 2251 return of pulses 2257 CaCl x 1 amp IVP 2300 D50 x 1 amp IVP 2302 D50 x 1 amp IVP 2305 Insulin 10 units IVP, Family called [address] Segundo notified
[2021-02-02 00:21] LABS: Fractionated Inspired Oxygen 100; HCO3 ABG 19 mmol/L (22-26); Oxygen Saturation ABG 42 % (95-100); PCO2 ABG 85.3 mmHg (35-45); PO2 ABG 38 mmHg (80-100); TCO2 ABG 21 mmol/L (21-31); pH ABG 6.95 (7.35-7.45)
--- NOTE | 2021-02-02 00:29 | PC.NURSE ---
2014 Norepinephrine gtts new bag started 2254 Phenylephrine gtts new bag started
--- NOTE | 2021-02-02 04:05 | PC.NURSE ---
Patient possessions at bedside Wisam nayak sweatshirt / jacket pink nightgown oliva slippers Multi-colored blanket
--- NOTE | 2021-02-02 08:41 | DIET.CONS ---
Dietary Consultation Note Pt overnight.
--- NOTE | 2021-02-02 09:03 | PC.NURSE ---
Patient 02/01/21. Body picked up by [facility] at approximately 0830 02/02/21. All IV access, ET tube, OG tube, and pickett removed. Patient's belongings sent with body.
== END 2021-02-02 08:30 | disposition expired | DRG 871 ==
PROVIDERS: Admitting Provider Internal Medicine; Referring Provider Internal Medicine; Visit Provider Internal Medicine
DX: A41.89 Other specified sepsis (principal); R65.21 Severe sepsis with septic shock; U07.1 COVID-19; J12.82 Pneumonia due to coronavirus disease 2019; J80 Acute respiratory distress syndrome; N17.9 Acute kidney failure, unspecified; E87.4 Mixed disorder of acid-base balance; Z68.43 Body mass index [BMI] 50.0-59.9, adult; E66.01 Morbid (severe) obesity due to excess calories; R79.1 Abnormal coagulation profile; Z87.891 Personal history of nicotine dependence; J45.909 Unspecified asthma, uncomplicated; B19.20 Unspecified viral hepatitis C without hepatic coma
CPT/HCPCS: 36569; 36600; 71045; 76770; 80053; 82550; 82728; 82805; 82962; 83605; 83615; 84145; 84484; 85007; 85025; 86140; 87635; 87797; 92950; 94002; 94799; C9803; J0171; J0692; J2250; J3010; J7121